=== PATIENT | male | born 1995 | race Caucasian/White ===

== ENCOUNTER 2017-07-07 19:49 | Emergency (ER) | payer OTHER ==
[2017-07-07 19:53] VITALS: BP 132/68; PULSE 78; RESP 16; TEMP 98.2; O2SAT 98
--- NOTE | 2017-07-07 20:55 | PD ---
HPI Chief Complaint: Injury Time Seen by Provider: 20:33 Travel History International Travel<30 days: No Contact w/Intl Traveler<30days: No Traveled to known affect area: No History of Present Illness HPI 21-year-old [id number] white male presents to emergency Department with complaints of left little finger pain and swelling. He states that he had it caught between a piece of metal in a trailer yesterday. He was moving away of a plain and fell off its grove and pinched his finger on the trailer. The nailbed is now black and blue and swollen. He denies any numbness, tingling or focal weakness. He is up-to-date with immunizations. He attempted to trephinate it but was unable to. Pain is mild. No alleviating factors. PFSH Past Medical History Narrative Medical Recurrent skin infections Immunizations Current: Yes Tetanus Vaccination: < 5 Years Influenza Vaccination: No Past Surgical History Surgical History: No Previous Surgery Social History Alcohol Use: No Tobacco Use: No Substance Use: No Allergies-Medications (Allergen,Severity, Reaction): Coded Allergies: Penicillins (Verified Allergy, Severe, Hives, 07/07/17) Reported Meds & Prescriptions Reported Meds & Active Scripts Active No Active Prescriptions or Reported Medications Review of Systems Except as stated in HPI: all other systems reviewed are Neg Physical Exam Narrative GENERAL: This is a well-nourished, well-developed patient, in no apparent distress. SKIN: No rashes, ecchymoses or lesions. Warm and dry. HEAD: Atraumatic. Normocephalic. EYES: PERRL, EOMI, no discharge or injection. No scleral icterus. EARS: Clear NOSE: Nasal turbinates appear normal. THROAT: Mucosa pink and moist. Airway patent. NECK: Trachea midline. supple, moves head freely. LUNGS: Clear to auscultation. CV: Regular in rhythm. ABDOMEN: Soft nontender. EXT: No clubbing cyanosis or edema. Examination of the left little finger reveals a subungual hematoma. Minimal swelling. Patient is able to fully extend and flex his finger freely. Good Refill. Intact sensation. Tender over the distal phalanx. Joints are intact. Data Data Last Documented VS Vital Signs Date Time Temp Pulse Resp B/P (MAP) Pulse Ox O2 Delivery O2 Flow Rate FiO2 07/07/17 19:53 98.2 78 16 132/68 (89) 98 Room Air Orders Orders Finger ([id number]) (07/07/17 20:36) MDM Medical Decision Making Medical Screen Exam Complete: Yes Emergency Medical Condition: Yes Medical Record Reviewed: Yes Interpretation(s) Left little finger: Negative for fracture. Differential Diagnosis MDM: High Differential diagnoses: Fracture, sprain, strain, dislocation, contusion, neurovascular injury Narrative Course Patient has his finger nail trephinated with electrocautery. X-ray is negative for bony injury. Dressing applied. This is left little finger subungual hematoma Procedures Procedure Narrative Left little finger subungual hematoma: The nail was cleansed and trephinated using electrocautery pen. Pain immediately relieved. Blood is expressed and dressing applied. No complications. Diagnosis Primary Impression: Subungual hematoma of left little finger Qualified Codes: S60.152A - Contusion of left little finger with damage to nail, initial encounter Patient Instructions: General Instructions Additional Instructions: Rest. Elevation. Daily wound care with soap, water, Neosporin and keep covered with a Band-Aid. May soak in Epsom salts. Tylenol or Advil for pain. Anticipate your nails to follow-up in [facility] back in 2 months. Return to the ER if any problems. Med/Other Pt SpecificInfo: No Meds Exist/No RX given Scripts No Active Prescriptions or Reported Meds Disposition: 01 DISCHARGE HOME Condition: Stable Oracio Parsons Jul 07, 2017 20:55
--- NOTE | 2017-07-07 21:54 | RADRPT ---
EXAM DATE/TIME: 07/07/2017 20:50 [facility] COMPARISON: No previous studies available for comparison. INDICATIONS : Smashed left hand, 5th digit, pain. MEDICAL HISTORY : None. SURGICAL HISTORY : None. ENCOUNTER: Initial ACUITY: 2 days PAIN SCORE: 2/10 LOCATION: Left distal hand, 5th digit. FINDINGS: Examination of the fifth digit of the left hand demonstrates no evidence of fracture or dislocation. No radiopaque foreign bodies are seen. The soft tissues are intact. CONCLUSION: No acute disease. Winston Pena MD on July 07, 2017 at 21:52 Board Certified Radiologist. This report was verified electronically.
== END 2017-07-07 21:28 | disposition home or self-care (01) ==
LOC: NEPK 19:49
DX: S60.152A Contusion of left little finger with damage to nail, initial encounter (principal); W23.0XXA Caught, crushed, jammed, or pinched between moving objects, initial encounter
CPT/HCPCS: 11740; 73140